=== PATIENT | male | born 1970 | race African-American/Black ===

== ENCOUNTER 2020-08-14 16:32 | Inpatient (IN) | payer OTHER ==
[2020-08-14 16:57] VITALS: BMI 27.5
[2020-08-14] MEDS ORDERED: ACETAMINOPHEN 1000 MG/100 ML VIAL (NON FORMULARY) IVPB ONE (17:38)
[2020-08-14] MEDS ORDERED: ACETAMINOPHEN INJECTION 100 ML IVPB ONE (17:38)
[2020-08-14 17:58] LABS: INR 1.2 (0.83-1.09); PROTHROMBIN TIME (PATIENT) 14.5 SEC (9.7-13.0)
[2020-08-14 18:01] LABS: ACTIVATED PTT 31.6 SECONDS (25.2-36.5)
[2020-08-14 18:05] LABS: HEMATOCRIT 34.3 % (35.4-49); HEMOGLOBIN 11.4 GM/dL (11.7-16.9); MCH 27.2 pg (25.7-33.7); MCHC 33.3 g/dl (32.0-35.9); MEAN CELL VOLUME 81.9 fl (80-96); MEAN PLT VOLUME 8.6 fl (7.5-11.1); PLATELET COUNT 367 K/MM3 (134-434); RBC 4.18 M/mm3 (4.00-5.60); RDW 15.1 % (11.9-15.9); WHITE BLOOD COUNT 7.1 K/mm3 (4.0-10.0)
[2020-08-14 18:08] LABS: CALCIUM 8.3 mg/dL (8.5-10.1)
[2020-08-14 18:09] LABS: ALBUMIN 2.4 g/dl (3.4-5.0); BLOOD UREA NITROGEN 12.4 mg/dL (7-18)
[2020-08-14 18:12] LABS: CREATININE 1.3 mg/dL (0.55-1.3)
[2020-08-14 18:14] LABS: BILIRUBIN,TOTAL 0.6 mg/dL (0.2-1); TOT PROT 7.3 g/dl (6.4-8.2)
[2020-08-14] MEDS ORDERED: APIXABAN 5 MG TABLET PO ONE (20:46)
[2020-08-14] MEDS ORDERED: APIXABAN 5 MG TABLET ONE (21:03)
[2020-08-14] MEDS ORDERED: HEPARIN INFUSION - 25,000 UNITS/500 ML INFUS.BAG IVPB ONE (22:05)
[2020-08-14] MEDS ORDERED: HEPARIN NA (PORCINE) 5,000 UNITS/ML 1ML VIAL ONE (22:43)
[2020-08-14] MEDS: HEPARIN SOD,PORK IN 0.45% NACL 25,000 UNITS/500 ML INFUS.BAG IVPB SCH (23:28)
[2020-08-15 07:36] LABS: BASO % 1.1 % (0-2.0); EOS % 4.7 % (0-4.5); HEMOGLOBIN 10.7 GM/dL (11.7-16.9); LYMPH % 21.6 % (8-40); MCH 27.4 pg (25.7-33.7); MCHC 33.4 g/dl (32.0-35.9); MEAN CELL VOLUME 81.9 fl (80-96); MEAN PLT VOLUME 8.6 fl (7.5-11.1); MONO % 13.3 % (3.8-10.2); NEUT % 59.3 % (42.8-82.8); PLATELET COUNT 339 K/MM3 (134-434); RDW 14.9 % (11.9-15.9); WHITE BLOOD COUNT 5.3 K/mm3 (4.0-10.0)
[2020-08-15 08:10] LABS: CALCIUM 8.2 mg/dL (8.5-10.1)
[2020-08-15 08:11] LABS: ALBUMIN 2.2 g/dl (3.4-5.0); BLOOD UREA NITROGEN 9.1 mg/dL (7-18); MAGNESIUM 2.2 mg/dL (1.8-2.4)
[2020-08-15 08:14] LABS: CREATININE 1.2 mg/dL (0.55-1.3); PHOSPHOROUS 3.2 mg/dL (2.5-4.9)
[2020-08-15 08:15] LABS: BILIRUBIN,TOTAL 0.5 mg/dL (0.2-1)
[2020-08-15 08:16] LABS: TOT PROT 6.6 g/dl (6.4-8.2)
[2020-08-15 08:49] LABS: INR 1.28 (0.83-1.09); PROTHROMBIN TIME (PATIENT) 15.6 SEC (9.7-13.0)
[2020-08-15 08:52] LABS: ACTIVATED PTT 44.5 SECONDS (25.2-36.5)
[2020-08-15] MEDS ORDERED: HEPARIN NA (PORCINE) 5,000 UNITS/ML 1ML VIAL IVPUSH PRN ×2 (10:01)
[2020-08-15 10:56] LABS: N-TERMINAL BNP 408.3 pg/ml (5-125)
[2020-08-15] MEDS: MUPIROCIN 2% TOPICAL OINTMENT FOR DECOLONIZATION NS SCH ×2 (16:39→22:39)
[2020-08-15] MEDS ORDERED: PT OWN MED DRAWER 7, Y5N ONE (16:41)
[2020-08-15] MEDS: ZINC SULFATE 220 MG CAPSULE (FP) PO SCH (22:38)
[2020-08-15] MEDS: CHLORHEXIDINE GLUCONATE 4% CLEANSER FOR DECOLONIZATION TP SCH (22:39)
[2020-08-15] MEDS: HEPARIN SOD,PORK IN 0.45% NACL 25,000 UNITS/500 ML INFUS.BAG IVPB SCH (23:00)
[2020-08-15] MEDS ORDERED: ACETAMINOPHEN 325 MG TABLET (FP) ONE (23:18)
[2020-08-15] MEDS: ACETAMINOPHEN 325 MG TABLET (FP) PO PRN (23:19)
[2020-08-16 07:08] LABS: HEMATOCRIT 34.3 % (35.4-49); HEMOGLOBIN 11.1 GM/dL (11.7-16.9); MCH 26.4 pg (25.7-33.7); MCHC 32.5 g/dl (32.0-35.9); MEAN CELL VOLUME 81.3 fl (80-96); PLATELET COUNT 369 K/MM3 (134-434); RBC 4.21 M/mm3 (4.00-5.60); WHITE BLOOD COUNT 7.1 K/mm3 (4.0-10.0)
[2020-08-16 07:13] LABS: INR 1.18 (0.83-1.09); PROTHROMBIN TIME (PATIENT) 14.5 SEC (9.7-13.0)
[2020-08-16 07:16] LABS: ACTIVATED PTT 54.9 SECONDS (25.2-36.5)
[2020-08-16 07:58] LABS: CALCIUM 8.3 mg/dL (8.5-10.1)
[2020-08-16 08:02] LABS: ALBUMIN 2.3 g/dl (3.4-5.0); BLOOD UREA NITROGEN 10.3 mg/dL (7-18)
[2020-08-16 08:05] LABS: CREATININE 1.1 mg/dL (0.55-1.3)
[2020-08-16 08:07] LABS: BILIRUBIN,TOTAL 0.5 mg/dL (0.2-1); TOT PROT 6.7 g/dl (6.4-8.2)
[2020-08-16] MEDS: ZINC SULFATE 220 MG CAPSULE (FP) PO SCH ×2 (10:24→20:59)
[2020-08-16] MEDS: MUPIROCIN 2% TOPICAL OINTMENT FOR DECOLONIZATION NS SCH ×2 (10:25→21:00)
[2020-08-16] MEDS ORDERED: APIXABAN 5 MG TABLET PO SCH (13:00)
[2020-08-16] MEDS: APIXABAN 5 MG TABLET PO SCH (20:59)
[2020-08-16] MEDS: CHLORHEXIDINE GLUCONATE 4% CLEANSER FOR DECOLONIZATION TP SCH (21:00)
[2020-08-16] MEDS: ACETAMINOPHEN 325 MG TABLET (FP) PO PRN (21:00)
[2020-08-16] MEDS: HEPARIN SOD,PORK IN 0.45% NACL 25,000 UNITS/500 ML INFUS.BAG IVPB SCH (21:00)
[2020-08-17 06:52] LABS: HEMOGLOBIN 10.8 GM/dL (11.7-16.9); MCH 26.4 pg (25.7-33.7); MCHC 32.9 g/dl (32.0-35.9); MEAN CELL VOLUME 80.4 fl (80-96); MEAN PLT VOLUME 8.2 fl (7.5-11.1); PLATELET COUNT 410 K/MM3 (134-434); WHITE BLOOD COUNT 6.5 K/mm3 (4.0-10.0)
[2020-08-17 06:53] LABS: POTASSIUM 3.9 mmol/L (3.5-5.1)
[2020-08-17 06:57] LABS: ALBUMIN 2.3 g/dl (3.4-5.0); BLOOD UREA NITROGEN 9.1 mg/dL (7-18)
[2020-08-17 07:00] LABS: CREATININE 1.1 mg/dL (0.55-1.3)
[2020-08-17 07:01] LABS: PHOSPHOROUS 2.9 mg/dL (2.5-4.9)
[2020-08-17 07:02] LABS: BILIRUBIN,TOTAL 0.8 mg/dL (0.2-1); TOT PROT 6.7 g/dl (6.4-8.2)
[2020-08-17] MEDS: ZINC SULFATE 220 MG CAPSULE (FP) PO SCH (09:48)
[2020-08-17] MEDS: APIXABAN 5 MG TABLET PO SCH (09:50)
[2020-08-17] MEDS: MUPIROCIN 2% TOPICAL OINTMENT FOR DECOLONIZATION NS SCH (09:50)
[2020-08-17 16:34] VITALS: BP 141/80; PULSE 75; TEMP 98.2
[2020-08-17] MEDS ORDERED: APIXABAN 5 MG TABLET PO SCH (22:00)
[2020-08-18] MEDS ORDERED: metoPROLOL SUCCINATE 25 MG TAB.SR.24H (FP) PO SCH (10:00)
[2020-08-24] MEDS ORDERED: APIXABAN 5 MG TABLET PO SCH (10:00)
== END 2020-08-17 21:10 | disposition home or self-care (01) | DRG 197 ==
LOC: JER 16:32 → JERBED 21:44 → JICU 08-15 00:55
PROVIDERS: ADMIT Internal Medicine Pulmonary Disease; ATTEND Internal Medicine Pulmonary Disease
DX: I82.4Z1 Acute embolism and thrombosis of unspecified deep veins of right distal lower extremity (principal); I26.99 Other pulmonary embolism without acute cor pulmonale; I10 Essential (primary) hypertension; I47.1 Supraventricular tachycardia
CPT/HCPCS: 36415; 71045-TC-FY; 71275-TC; 80053; 82550; 82728; 83615; 83735; 83880; 84100; 84484; 85025; 85027; 85610; 85730; 86140; 86850; 86900; 86901; 93005; 93010; 93306-TC; 99291; C9803; J0131; J1644; Q9967; U0003